=== PATIENT | female | born 1980 | race Caucasian/White ===

== ENCOUNTER 2016-07-11 16:56 | Emergency (ER) | payer SELFPAY ==
[2016-07-11 17:20] VITALS: BP 153/89
--- NOTE | 2016-07-11 18:10 | UC ---
Hand/Wrist HPI - HPI Summary HPI Summary: complaint of right pointer finger pain slammed in a car door yesterday finger is swollen and painful unable to sleep d/t pain pain increases with movement constant aching pain that is non radiating hasn't taken anything for pain d/t - History Of Current Complaint Chief Complaint: UCUpperExtremity Stated Complaint: FINGER INJURY Time Seen by Provider: 07/11/16 18:00 Hx Obtained From: Patient Hx Last Menstrual Period: over one year ago - Allergies/Home Medications Allergies/Adverse Reactions: Allergies Allergy/AdvReac Type Severity Reaction Status Date / Time No Known Allergies Allergy Verified 07/11/16 17:21 Home Medications: Home Medications NK [No Home Medications Reported] 07/11/16 [History Confirmed 07/11/16] PMH/Surg Hx/FS Hx/Imm Hx Previously Healthy: Yes Endocrine History Of: Reports: Diabetes - gestational, Thyroid Disease - nodule Cardiovascular History Of: Reports: Cardiac Disorders - mitral valve prolapse, Hypertension Denies: Congestive Heart Failure Respiratory History Of: Denies: COPD, Asthma GI/ History Of: Denies: Ulcer, Renal Disease Neurological History Of: Reports: Migraine - 20 year history, last migrane two months ago - Surgical History Surgical History: Yes Surgery Procedure, Year, and Place: c section two 01/31/16 - Family History Known Family History: Negative: Cardiac Disease, Hypertension, Diabetes - Social History Lives: With Family Alcohol Use: None Substance Use Type: None Smoking Status (MU): Never Smoked Tobacco Have You Smoked in the Last Year: No - Immunization History Most Recent Influenza Vaccination: unknown Most Recent Tetanus Shot: 12/06/15 Most Recent Pneumonia Vaccination: n/a Review of Systems Constitutional: Negative Skin: Negative Eyes: Negative ENT: Negative Respiratory: Negative Cardiovascular: Negative Gastrointestinal: Negative Genitourinary: Negative Motor: Negative, Decreased ROM Musculoskeletal: Other: - right pointer finger pain Neurological: Negative Psychological: Negative All Other Systems Reviewed And Are Negative: Yes Physical Exam Triage Information Reviewed: Yes Appearance: No Pain Distress, Well-Nourished Vital Signs: Initial Vital Signs Temp 98.6 F 07/11/16 17:17 Pulse 86 07/11/16 17:17 Resp 12 07/11/16 17:17 BP 153/89 07/11/16 17:17 Pulse Ox 100 07/11/16 17:17 Vital Signs Reviewed: Yes Eyes: Positive: Conjunctiva Clear ENT: Positive: Pharynx normal, TMs normal Neck: Positive: No Lymphadenopathy Respiratory: Positive: Lungs clear, Normal breath sounds, No respiratory distress Cardiovascular: Positive: RRR, No Murmur, Pulses Normal Musculoskeletal: Positive: Other: - righ index finger- edema and erythema throughout DIP and middle phalanx unable to bend DIP joint metacarpls in hand non tender Neurological: Positive: Alert Psychological Exam: Normal Skin Exam: Normal Skin: Positive: Other - nailbed of right index finger with collection of blood beneath Procedures - Procedure Summary Procedure Summary: finger cleansed with betadyne 18 guage needle turned on nail to release blood sterile dressing applied Hand/Wrist Course/Dx - Differential Dx/Diagnosis Differential Diagnosis/HQI/PQRI: Fracture, Sprain, Strain, Subungual Hematoma Provider Diagnoses: subnungal hematoma, right index finger distal tuft fracture Discharge - Discharge Plan Condition: Stable Disposition: HOME Patient Education Materials: Subungual Hematoma (ED), Finger Fracture (ED) Referrals: Glenda Thacker MD [Primary Care Provider] - Emily Soto MD [Medical Doctor] - Additional Instructions: Your blood pressure is elevated. Please contact your primary care provider for further evaluation. keep your finger in splint until you see orthopedics keep finger clean and dry Take acetaminophen or ibuprofen for fever or pain Please review your discharge instructions. If your symptoms do not improve please call your primary care provider or return to urgent care
--- NOTE | 2016-07-11 18:41 | RAD ---
Indication: Finger injury. 3 views of the right index finger demonstrates question of a nondisplaced fracture of the distal tuft of the distal phalanx. Proximal and distal interphalangeal joint is unremarkable. IMPRESSION: Question nondisplaced fracture of the distal tuft of the distal phalanx. No significant displacement is noted.
== END 2016-07-11 18:37 | disposition home or self-care (01) ==
LOC: UCEAST 16:56
DX: S60.021A Contusion of right index finger without damage to nail, initial encounter (principal); W23.0XXA Caught, crushed, jammed, or pinched between moving objects, initial encounter; Y93.9 Activity, unspecified; Y92.810 Car as the place of occurrence of the external cause
CPT/HCPCS: 10160; 73140; 99211; G0463

== ENCOUNTER 2017-11-03 18:23 | Emergency (ER) | payer BC ==
[2017-11-03] MEDS ORDERED: Ketorolac INJ* 30 MG/ML 1 ML VIAL IV PUSH ONE (19:15)
[2017-11-03] MEDS ORDERED: diPHENhydraMINE IV* 50 MG/ML 1 ml VIAL (BENADRYL) IV ONE (19:15)
[2017-11-03] MEDS ORDERED: Metoclopramide IV* 5 MG/ML 2 ML VIAL IV ONE (19:15)
[2017-11-03] MEDS ORDERED: NS 0.9% 1000 ML* 1,000 ML IV ONE (19:15)
--- NOTE | 2017-11-03 19:47 | ED ---
Headache - HPI Summary HPI Summary: A 37 y/o female presents to ED c/o severe migraine headache. According to the patient, the right-sided headache has been getting worse since the morning reaching 10/10 in severity. Additionally, she has neck pain, light sensitivity and her tongue feels numb. She stated that this is the 3rd migraine attack today , however she was able subside the pain with her prescribed medication for migraines from neurologist, Dr. To. The medication did not quite stop the pain , but reduced it. It never fully went away. Pt denies any vomit or nausea. Pt is soft-spoken. LKMP was 1 week ago, no possibility for . - History Of Current Complaint Chief Complaint: EDHeadache Stated Complaint: MIGRAINE Time Seen by Provider: 11/03/17 18:55 Hx Obtained From: Patient Hx Last Menstrual Period: over one year ago Onset/Duration: Sudden Onset, Started hours ago, Still Present Initially Headache Was: "Worst Headache Ever" - 10/10 Currently Pain Is: Severe - 10/10 Timing: Constant Location of Headache: Other: - Right-sided Allevating Factors: Medication - Prescribed meds, temporarily Associated Signs And Symptoms: Neck Pain, Other (Noted In Comments) - Tongue feels numb - Allergies/Home Medications Allergies/Adverse Reactions: Allergies Allergy/AdvReac Type Severity Reaction Status Date / Time No Known Allergies Allergy Verified 11/03/17 18:28 PMH/Surg Hx/FS Hx/Imm Hx Endocrine/Hematology History: Reports: Hx Diabetes - gestational, Hx Thyroid Disease - nodule Cardiovascular History: Reports: Hx Hypertension, Other Cardiovascular Problems/ Disorders - "prolapsed heart valve" Denies: Hx Congestive Heart Failure Respiratory History: Denies: Hx Asthma, Hx Chronic Obstructive Pulmonary Disease (COPD), Other Respiratory Problems/Disorders - DENIES GI History: Denies: Hx Ulcer History: Reports: Other Problems/Disorders - two weeks ago, still has vaginal bleeding Denies: Hx Renal Disease Musculoskeletal History: Reports: Hx Back Problems - fell on ice two years ago, painful if she has too much activity Neurological History: Reports: Hx Migraine - 20 year history, last migrane two months ago - Surgical History Surgery Procedure, Year, and Place: c section two 01/31/16 Hx Anesthesia Reactions: No Infectious Disease History: No Infectious Disease History: Denies: Hx Hepatitis, Hx Human Immunodeficiency Virus (HIV), Traveled Outside the [place] in Last 30 Days - Family History Known Family History: Negative: Cardiac Disease, Hypertension, Diabetes - Social History Alcohol Use: None Substance Use Type: Reports: None Smoking Status (MU): Never Smoked Tobacco Have You Smoked in the Last Year: No Review of Systems Negative: Fever Positive: Photophobia Positive: Other - POSITIVE: Tongue feels numb Positive: Other - POSITIVE: Neck pain. Negative: Vomiting, Nausea Positive: Headache - Migraine 01/29 All Other Systems Reviewed And Are Negative: Yes Physical Exam - Summary Physical Exam Summary: GENERAL: Patient is a well developed and nourished female who is lying uncomfortable in the stretcher secondary to pain. Patient is not in any acute respiratory distress. HEAD AND FACE: Normocephalic EYES: PERRLA, EOMI x 2. EARS: Hearing grossly intact. MOUTH: Oropharynx within normal limits. NECK: Supple, trachea is midline, no adenopathy, no JVD, no carotid bruit. CHEST: Symmetric, no tenderness at palpation LUNGS: Clear to auscultation bilaterally. No wheezing or crackles. CVS: Regular rate and rhythm, S1 and S2 present, no murmurs or gallops appreciated. ABDOMEN: Soft, non-tender. Bowel sounds are normal. No abdominal abnormal pulsations. EXTREMITIES: Full ROM in all major joints, no edema, no cyanosis or clubbing. NEURO: Alert and oriented x 3. No acute neurological deficits. Speech is normal and follows commands. SKIN: Dry and warm Triage Information Reviewed: Yes Vital Signs On Initial Exam: Initial Vitals Temp Pulse Resp BP Pulse Ox 98.0 F 86 14 145/79 100 11/03/17 18:26 11/03/17 18:26 11/03/17 18:26 11/03/17 18:26 11/03/17 18:26 Vital Signs Reviewed: Yes Diagnostics - Vital Signs Vital Signs Temp Pulse Resp BP Pulse Ox 11/03/17 18:26 98.0 F 86 14 145/79 100 - Laboratory Lab Statement: Any lab studies that have been ordered have been reviewed, and results considered in the medical decision making process. - CT No standard instances CT Interpretation: No Acute Changes CT Interpretation Completed By: ED Physician, Radiologist Re-Evaluation - Re-Evaluation First Eval Re-Evaluation Time: 21:08 Change: Unchanged Comment: Patient is still in pain. She is sore up and down. No possibility for pregnany. No test will be required. Will get CAT scan of head. Headache Course/Dx - Course Course Of Treatment: A 37 y/o female presents to ED c/o severe migraine headache. According to the patient, the right-sided headache has been getting worse since the morning reaching 10/10 in severity. Additionally, she has neck pain, light sensitivity and her tongue feels numb. In the ED course, the patient received Decadron, Benadryl, Toradol, Reglan, Magnesium Sulfate and IV fluids. Patient care was discussed with Dr. Florian. During reevaluation of patient, it was found that she still in pain. She is sore up and down. No possibility for pregnany. No test will be ordered. Will get CAT scan of head. Patient will be signed out to [place]. Currently awaiting Brain CT. - Diagnoses Provider Diagnoses: Migraine - Physician Notifications Discussed Care Of Patient With: Hailey Florian Discharge - Sign-Out/Discharge Documenting (check all that apply): Patient Departure - Discharge Plan Condition: Improved Disposition: HOME Prescriptions: diPHENhydraMINE PO* [Benadryl PO 25 MG TAB*] 25 mg PO Q6H PRN #24 tab PRN Reason: Headache Metoclopramide TAB* [Reglan TAB*] 10 mg PO Q8H PRN #14 tab PRN Reason: Headache Patient Education Materials: Migraine Headache (ED) Referrals: Glenda Thacker MD [Primary Care Provider] - - Billing Disposition and Condition Condition: IMPROVED Disposition: Home
[2017-11-03] MEDS ORDERED: Dexamethasone IV* 4 MG/ML 5 ML VIAL (20 MG) IVPB ONE (20:35)
[2017-11-03] MEDS ORDERED: Magnesium Sulfate IV* 2 GM in NS 0.9% 100 ML* 100 ML IV ONE (20:36)
[2017-11-03] MEDS ORDERED: Magnesium Sulfate IV* 0.5 GM/ML 2 ML VIAL (1 GM) ONE (20:39)
[2017-11-03] MEDS ORDERED: Dexamethasone IV* 4 MG/ML 5 ML VIAL (20 MG) ONE (20:40)
[2017-11-03] MEDS ORDERED: diPHENhydraMINE PO* 25 MG PO ONE (22:01)
[2017-11-03] MEDS ORDERED: Metoclopramide TAB* 10 MG PO ONE (22:01)
[2017-11-03 23:09] VITALS: BP 121/79
--- NOTE | 2017-11-04 07:31 | RAD ---
Indication: Migraine headache. CT of the brain was performed without IV contrast. Ventricular structures are midline. No midline shift is noted. The extra-axial spaces are unremarkable. There is no evidence of intracranial mass or hemorrhage. No other high or low density lesions are identified. Mastoid air cells and paranasal sinuses are otherwise unremarkable. IMPRESSION: No intracranial mass or hemorrhage is noted.
== END 2017-11-03 23:08 | disposition home or self-care (01) ==
LOC: ED 18:23
DX: G43.909 Migraine, unspecified, not intractable, without status migrainosus (principal); M54.2 Cervicalgia; R20.2 Paresthesia of skin; Z86.32 Personal history of gestational diabetes; E04.1 Nontoxic single thyroid nodule; I11.9 Hypertensive heart disease without heart failure
CPT/HCPCS: 70450; 96365; 96375; 96376; 99282; A9270-GY; J1100; J1200; J1885; J2765; J3475

== ENCOUNTER 2019-04-03 09:24 | Emergency (ER) | payer BC ==
--- OUTSIDE RECORDS SUMMARY | 2019-04-03 09:35 | XMS REPORT | Continuity of Care Document ---
:1980 External Reference #:[id number] Author Name Spencer To M.D. (transmitted by agent of provider Anai Ling) Address [address] [place] [address], [place] [address] Care Team Providers Name Role Phone Yasmin Hubbard NP - Family Care Team Information [facility] [employer] [phone] Glenda Thacker MD - Internal Care Team Information [facility] Medicine Pancho Crawford MD - Otolaryngology Care Team Information [employer] [employer] [phone] Problems Active Problems Provider Date Non-toxic uninodular goiter Liberty Maya M.D., [facility] Onset: 11/06/2010 Migraine without aura, not refractory Cleo Ritter M.D. Onset: 2014 Migraine with aura Cleo Ritter M.D. Onset: 09/02/2014 Dyspnea Mohini Montero MD Onset: 11/03/2014 Mitral valve disorder Mohini Montero MD Onset: 01/19/2015 Note: mitral regurg Palpitations Santiago Bishop M.D., [facility], [facility] Onset: 09/05/2015 Crushing injury of finger Juan C Gutierrez MD Onset: 07/13/2016 Refractory migraine with aura Spencer To M.D. Onset: 09/09/2017 Hypersomnia Spencer To M.D. Onset: 03/27/2019 Pulmonary hypertension Spencer To M.D. Onset: 03/27/2019 Social History Type Date Description Comments Sex Unknown ETOH Use Denies alcohol use Tobacco Use Start: Unknown Patient has never smoked Recreational Drug Use Denies Drug Use Smoking Status Reviewed: 03/27/19 Patient has never smoked Exercise Type/Frequency Does not exercise Allergies, Adverse Reactions, Alerts Description No Known Drug Allergies Medications Active Medications SIG Qnty Indications Ordering Provider Date Medrol take as directed 21tabs Qamar Omalley, 03/05/2019 4mg per dosepak N.P. Tablets instructions Aimovig inject with one 140 1ml Qamar Omalley, 02/12/2019 140mg/ml mg auto-inject pen, N.P. Solution subcutaneous Auto-Inject injection once a month Rizatriptan 1 by mouth as 9tabs Spencer To, 02/12/2019 Benzoate needed for headache M.D. 10mg may repeat once in Tablets Dispers 2 hours max 2 days a week Ondansetron HCL take 1 pill every 8 14tabs Spencer To, 03/11/2018 hours as needed for M.D. 4mg Tablets nausea Butalbital/Acetami 1 by mouth every 15caps G43.119 Spencer To, 11/18 nophen/Caffeine 8-12 hours as M.D. needed for 50-325-40mg headache. do not Capsules drive after taking Parks take 1/2 to 1 pill 9tabs Spencer To, 11/03/2017 10-325mg by mouth every 8-12 M.D. Tablets hours as needed for pain. can cause sleepiness, do not drive while taking Aleve one to two tabs as Unknown Capsules needed Vitamin B-2 1 tab by mouth once Unknown 100mg a day Tablets Immunizations CPT Code Status Date Vaccine Lot # [id number] Given 01/26/2019 Influenza Virus Vaccine, Quadrivalent, Split, Preservative Free 09939 Given 01/28/2018 Influenza Virus Vaccine, Quadrivalent, Split, Preservative Free 92386 Given 01/28/2018 Influenza Virus Vaccine, Quadrivalent, Split, Preservative Free 39890 Given 02/12/2017 Influenza Virus Vaccine, Quadrivalent, Split, [id number] Preservative Free 67231 Given 03/15/2015 Influenza Virus Vaccine, Quadrivalent, Split, [id number] Preservative Free 03450 Given 02/12/2012 Tdap - Tetanus/Diptheria/Acellular Pertussis [id number] Given 01/02/2012 Fluzone Vaccine [id number] 26603 Given 01/15/2011 Influenza Virus 3Yrs & Over [id number] 31715 Given 02/13/2007 Influenza Virus 3Yrs & Over Vital Signs Date Vital Result Comment 03/27/2019 9:27am Height 67 inches 5'7" Weight 200.00 lb Heart Rate 84 /min BP Systolic Sitting 138 mmHg BP Diastolic Sitting 84 mmHg BMI (Body Mass Index) 31.3 kg/m2 02/20/2019 9:19am Height 67 inches 5'7" Weight 202.00 lb Heart Rate 83 /min BP Systolic 137 mmHg BP Diastolic 85 mmHg O2 % BldC Oximetry 98 % BMI (Body Mass Index) 31.6 kg/m2 Results Test Acquired Date Facility Test Result H/L Range Note Order 03/26/2019 [facility] Echocardiogram <pending > [address] [place] [address] [phone] Cytology 03/05/2019 [facility] Cytology SEE RESULT 1, [address] [place] [address] [phone] PDFReport SEE IMAGE Lipid Profile 02/12/2019 [facility] Triglycerides 123 mg/dL 3 (Trig/Chol/HDL) [address] [place] [address] [phone] Cholesterol 133 mg/dL 4 HDL Cholesterol 41.3 mg/dL 5 LDL Cholesterol 67 mg/dL 6 Laboratory 02/12/2019 [facility] TSH (Thyroid 2.06 Normal 0.34 -5.60 test finding [address] Stim Horm) mcIU/[place] [address] [phone] CBC No Diff 02/12/2019 [facility] White Blood 6.4 10^3/uL Normal 3.5-10.[address] [place] [address] [phone] Red Blood Count 4.50 10^6/uL Normal 3.70-4.87 Hemoglobin 13.4 g/dL Normal 12.0-16.0 Hematocrit 40 % Normal 35-47 Mean Corpuscular Volume 89 fL Normal 80-97 Mean Corpuscular Hemoglobin 30 pg Normal 27-31 Mean Corpuscular HGB Conc 34 g/dL Normal 31-36 Red Cell Distribution Width 14 % Normal 10-15 Platelet Count 217 10^3/uL Normal 150-450 Mean Platelet Volume 8.5 fL Normal 7.4-10.4 Comp Metabolic 02/12/2019 [facility] Sodium 139 mmol/L Normal 135-[address] [place] [address] [phone] Potassium 4.3 mmol/L Normal 3.5-5.0 Chloride 105 mmol/L Normal 101-111 Co2 Carbon Dioxide 28 mmol/L Normal 22-32 Anion Gap 6 mmol/L Normal 2-11 Glucose 91 mg/dL Normal 70-100 Blood Urea Nitrogen 16 mg/dL Normal 6-24 Creatinine 0.75 mg/dL Normal 0.51-0.95 BUN/Creatinine Ratio 21.3 High 8-20 Calcium 9.3 mg/dL Normal 8.6-10.3 Total Protein 6.9 g/dL Normal 6.4-8.9 Albumin 4.4 g/dL Normal 3.2-5.2 Globulin 2.5 g/dL Normal 2-4 Albumin/Globulin Ratio 1.8 Normal 1-3 Total Bilirubin 1.10 mg/dL High 0.2-1.0 Alkaline Phosphatase 52 U/L Normal 34-104 Alt 15 U/L Normal 7-52 Ast 15 U/L Normal 13-39 Egfr Non- 86.5 >60 Egfr 104.6 >60 7 1 [id number] 2 SEE RESULT BELOW Name: ZHANEKAMARIAlla ALICIA Rosibel : [address]: Quyen Montgomery MD Acct: [id number] Unit: [id number] AGE: 38 Location: [facility] Re03/05/19 SEX: F Status: REG REF SPEC: [id number] ARMEN: 03/05/19-0936 [facility] DR: Quyen Montgomery MD REQ: [id number] RECD: 03/05/19-1256 STATUS: AISLINN FUNEZ DR: Glenda Thacker MD _ ORDERED: TP IMAGE ANALYS, HPV/Thin Prep COMMENTS: [id number] FINAL DIAGNOSIS Negative for Intraepithelial lesion or Malignancy HPV RESULTS Date Time Test Result Flag (u) Normal Range 03/05/19 0936 HPV TAMIKO Negative Negative The high-risk HPV types detected by the assay include: 16, 18, 31, 33, 35, 39, 45, 51, 52, 56, 58, 59, 66, and 68. SPECIMEN(S) RECEIVED A. Ectocervical/Endocervical CYTOLOGY ADEQUACY Specimen Adequacy: Satisfactory of evaluation Transformation zone component identified CONTINUED ON NEXT PAGE DEPARTMENT OF PATHOLOGY, [address] [place] [address] Anupam Cardenas M.D. Director [facility] # [id number] CYTOLOGY PATIENT INFORMATION Patient Information: HPV: High risk HPV RNA testing regardless of pap results. Actual Specimen Date: 03/05/19 Last Menstrual Date: 02/13/19 Date of Last Specimen: 07/27/15 Signed by and Reported on: AVINASH Rowland (ASCP) [id number] This Pap test was evaluated with the assistance of the ThinPrep Test Imaging System. Due to cytologic findings at the tray line supervisor microscope, comprehensive manual rescreening by a Professional Skater may be required. The Pap Smear is a screening test designed to aid in the detection of premalignant and malignant conditions of the uterine cervix. It is not a diagnostic procedure and should not be used as the sole means of detecting cervical cancer. Both false- positive and false- negative reports do occur. Depending on your risk status, a Pap smear should be obtained and evaluated every 1-3 years. END OF REPORT DEPARTMENT OF PATHOLOGY, [address] [place] [address] Anupam Cardenas M.D. Director [facility] # [id number] 3 Desirable: <150 Borderline High: 150-199 High: 200-499 Very High: >500 4 Desirable: <200 Borderline High: 200-239 High: >239 5 Low: <40 Desirable: 40-60 High: >60 6 Desirable: <100 Near Optimal: 100-129 Borderline High: 130-159 High: 160-189 Very High: >189 7 Because ethnic data is not always readily available, this report includes an eGFR for both -Americans and non- Americans. The National Kidney Disease Education Program (NKDEP) does not endorse the use of the MDRD equation for patients that are not between the ages of 18 and 70, are , have extremes of body size, muscle mass, or nutritional status, or are non- or non-. According to the National Kidney Foundation, irrespective of diagnosis, the stage of the disease is based on the level of kidney function: Stage Description GFR(mL/min/1.73 m(2)) 1 Kidney damage with normal or decreased GFR 90 2 Kidney damage with mild decrease in GFR 60-89 3 Moderate decrease in GFR 30-59 4 Severe decrease in GFR 15-29 5 Kidney failure <15 (or dialysis) Procedures Date Code Description Status 03/26/2019 48715 ECHO Transthoracic, Real-Time 2D With Doppler And Color Completed Flow 03/03/2010 [id number] Mammogram Completed 06/11/2008 [id number] Mammogram Completed Medical Devices Description No Information Available Encounters Type Date Location Provider Dx Diagnosis Office Visit 02/20/2019 [facility] Glenda Thacker, Z00.00 Encntr for 9:20a Medicine - [facility] general adult medical exam w/o abnormal findings I27.20 Pulmonary hypertension, unspecified E04.9 Nontoxic goiter, unspecified F41.9 Anxiety disorder, unspecified G47.33 Obstructive sleep apnea (adult) (pediatric) Office 02/02/2019 [facility] G43.119 Migraine with Visit 11:45a [facility] To M.D. aura, intractable, without status migrainosus Office 10/31/2018 [facility] Qamar G43.119 Migraine with Visit 9:30a [facility], N.PMariola aura, intractable, without status migrainosus Assessments Date Code Description Provider 03/27/2019 G43.119 Migraine with aura, intractable, without Spencer To M.D. status migrainosus 03/27/2019 I27.20 Pulmonary hypertension, unspecified Spencer To M.D. 03/27/2019 G47.14 Hypersomnia due to medical condition Spencer To M.D. 03/26/2019 I27.20 Pulmonary hypertension, unspecified Traveling ECHO 2 02/20/2019 Z00.00 Encounter for general adult medical Glenda Thacker M.D. examination without abnormal findings 02/20/2019 I27.20 Pulmonary hypertension, unspecified Glenda Thacker M.D. 02/20/2019 E04.9 Nontoxic goiter, unspecified Glenda Thacker M.D. 02/20/2019 F41.9 Anxiety disorder, unspecified Glenda Thacker M.D. 02/20/2019 G47.33 Obstructive sleep apnea (adult) (pediatric) Glenda Thacker M.D. 02/02/2019 G43.119 Migraine with aura, intractable, without Spencer To M.D. status migrainosus 10/31/2018 G43.119 Migraine with aura, intractable, without Qamaralesha Omalley , N.P. status migrainosus Plan of Treatment Future Appointment(s):06/11/2019 9:15 am - Spencer To M.D. at [facility]03/27/2019 - Spencer To M.D.G43.119 Migraine with aura, intractable, without status migrainosusFollow up:I will call you with new options Keep appointment in May CPAPI27.20 Pulmonary hypertension, [id number] Hypersomnia due to medical condition Functional Status Description No Information Available Mental Status Description No Information Available Referrals Description No Information Available
--- OUTSIDE RECORDS SUMMARY | 2019-04-03 09:35 | XMS REPORT | Continuity of Care Document ---
:1980 External Reference #:[id number] Author Name Emily Almonte NP (transmitted by agent of provider Zuly Headley) Address [address], [address] [place] [address] Care Team Providers Name Role Phone Yasmin Hubbard NP - Family Care Team Information Valve Machine Operator [phone] Glenda Thacker MD - Internal Care Team Information Valve Machine Operator [phone] Medicine Pancho Crawford MD - Otolaryngology Care Team Information Valve Machine Operator Problems Active Problems Provider Date Non-toxic uninodular goiter Liberty Maya M.D., [facility] Onset: 11/06/2010 Migraine without aura, not refractory Cleo Ritter M.D. Onset: 2014 Migraine with aura Cleo Ritter M.D. Onset: 09/02/2014 Dyspnea Mohini Montero MD Onset: 11/03/2014 Mitral valve disorder Mohini Montero MD Onset: 01/19/2015 Note: mitral regurg Palpitations Santiago Bishop M.D., [facility], Onset: 09/05/2015 FASNC Crushing injury of finger Juan C Gutierrez MD Onset: 07/13/2016 Refractory migraine with aura Spencer To M.D. Onset: 09/09/2017 Pulmonary hypertension Spencer To M.D. Onset: 03/27/2019 Hypersomnia Spencer To M.D. Onset: 03/27/2019 Obstructive sleep apnea syndrome Glenda Thacker M.D. Onset: 03/27/2019 Note: Mild sleep apnea 7.5 NPSG Split night Social History Type Date Description Comments Sex [...] headache. do not Capsules drive after taking [place] take 1/2 to 1 pill 9tabs Spencer To, 11/03/2017 10-325mg by mouth every 8-12 M.D. Tablets hours as needed for pain. can cause sleepiness, do not drive while taking Aleve one to two tabs as Unknown Capsules needed Vitamin B-2 1 tab by mouth once Unknown 100mg a day Tablets Immunizations CPT Code Status Date Vaccine Lot # [id number] Given 01/26/2019 Influenza Virus Vaccine, Quadrivalent, Split, Preservative Free 64591 Given 01/28/2018 Influenza Virus Vaccine, Quadrivalent, Split, Preservative Free 78718 Given 01/28/2018 Influenza Virus Vaccine, Quadrivalent, Split, Preservative Free 46028 Given 02/12/2017 Influenza Virus Vaccine, Quadrivalent, Split, [id number] Preservative Free 89638 Given 03/15/2015 Influenza Virus Vaccine, Quadrivalent, Split, [id number] Preservative Free 70779 Given 02/12/2012 Tdap - Tetanus/Diptheria/Acellular Pertussis [id number] Given 01/02/2012 Fluzone Vaccine [id number] 63704 Given 01/15/2011 Influenza Virus 3Yrs & Over [id number] 71466 Given 02/13/2007 Influenza Virus 3Yrs & Over [...] Test Result H/L Range Note Order 03/26/2019 [facility] Echocardiogram <pending > [address] [place] [address] [phone] Cytology 03/05/2019 [facility] Cytology SEE RESULT 1, [address] [place] [address] [phone] PDFReport SEE IMAGE Lipid Profile 02/12/2019 [facility] Triglycerides 123 mg/dL 3 (Trig/Chol/HDL) [address] [place] [address] [phone] Cholesterol 133 mg/dL 4 HDL Cholesterol 41.3 mg/dL 5 LDL Cholesterol 67 mg/dL 6 Laboratory 02/12/2019 [facility] TSH (Thyroid 2.06 Normal 0.34 -5.[address] Stim Horm) mcIU/[place] [address] [phone] CBC No Diff 02/12/2019 [facility] White Blood 6.4 10^3/uL Normal 3.5-10.[address] [place] [address] [phone] Red Blood Count 4.50 10^6/uL Normal 3.70-4.87 Hemoglobin 13.4 g/dL Normal 12.0-16.0 Hematocrit 40 % Normal 35-47 Mean Corpuscular Volume 89 fL Normal 80-97 Mean Corpuscular Hemoglobin 30 pg Normal 27-31 Mean Corpuscular HGB Conc 34 g/dL Normal 31-36 Red Cell Distribution Width 14 % Normal 10-15 Platelet Count 217 10^3/uL Normal 150-450 Mean Platelet Volume 8.5 fL Normal 7.4-10.4 Comp Metabolic 02/12/2019 [facility] Sodium 139 mmol/L Normal 135-[address] [place] [address] [phone] Potassium 4.3 mmol/L Normal 3.5-5.0 Chloride 105 [...] 86.5 >60 Egfr 104.6 >60 7 1 [id number] 2 SEE RESULT BELOW Name: Alla BUTLER : [address]: Quyen Montgomery MD Acct: [id number] Unit: [id number] AGE: 38 Location: [facility] Re03/05/19 SEX: F Status: REG REF SPEC: [id number] ARMEN: 03/05/19-[address] [facility] [address]: Quyen Montgomery MD REQ: [id number] RECD: 03/05/19-1257 STATUS: AISLINN FUNEZ DR: Glenda Thacker MD _ ORDERED: TP IMAGE ANALYS, HPV/Thin Prep COMMENTS: [id number] FINAL DIAGNOSIS Negative for Intraepithelial lesion or [...] CONTINUED ON NEXT PAGE DEPARTMENT OF PATHOLOGY, [address] [place] [address] Anupam Cardenas M.D. Director [facility] # [id number] CYTOLOGY PATIENT INFORMATION Patient Information: HPV: High risk HPV RNA testing regardless of pap results. Actual Specimen Date: 03/05/19 Last Menstrual Date: 02/13/19 Date of Last Specimen: 07/27/15 Signed by and Reported on: AVINASH Rowland (ASCP) 150 This Pap test was evaluated with the assistance of the NetradaPrep Test Imaging System. Due to cytologic findings at the aluminum molder microscope, comprehensive manual rescreening by a Transportation Technician may be required. The Pap Smear is [...] years. END OF REPORT DEPARTMENT OF PATHOLOGY, [address] [place] [address] Anupam Cardenas M.D. Director [facility] # [id number] 3 Desirable: <150 Borderline High: 150-199 High: [...] dialysis) Procedures Date Code Description Status 03/26/2019 47824 ECHO Transthoracic, Real-Time 2D With Doppler And Color Completed Flow 03/03/2010 [id number] Mammogram Completed 06/11/2008 [id number] Mammogram Completed Medical Devices Description No Information Available Encounters Type Date Location Provider Dx Diagnosis Office Visit 02/20/2019 [facility] Glenda Thacker, Z00.00 Encntr for 9:20a Medicine - Gerald Oakley general adult medical exam w/o abnormal findings I27.20 Pulmonary hypertension, unspecified E04.9 Nontoxic goiter, unspecified F41.9 Anxiety disorder, unspecified G47.33 Obstructive sleep apnea (adult) (pediatric) Office 02/02/2019 [facility] Spencer G43.119 Migraine with Visit 11:45a [facility] M.D. aura, intractable, without status migrainosus Office 10/31/2018 [facility] Qamar G43.119 Migraine with Visit 9:30a Clinic Nolvia Omalley aura, intractable, without status migrainosus Assessments Date Code Description Provider 03/27/2019 G47.33 Obstructive sleep apnea (adult) (pediatric) Emily Almonte NP 03/27/2019 G43.119 Migraine with aura, intractable, without Spencer To M.D. status migrainosus 03/27/2019 R06.02 Shortness of breath Emily Almonte NP 03/27/2019 I27.20 Pulmonary hypertension, unspecified Spencer To M.D. 03/27/2019 I27.20 Pulmonary hypertension, unspecified Emily Almonte NP 03/27/2019 G47.14 Hypersomnia due to medical condition Spencer To M.D. 03/27/2019 G47.14 Hypersomnia due to medical condition Eimly Almonte NP 03/26/2019 I27.20 Pulmonary hypertension, unspecified Traveling ECHO [...] 10/31/2018 G43.119 Migraine with aura, intractable, without Qamar Omalley N.P. status migrainosus Plan of Treatment Future Appointment(s):06/11/2019 9:15 am - Spencer To M.D. at [facility]03/27/2019 - Emily Almonte NPG47.33 Obstructive sleep apnea (adult) (pediatric)New Orders:Sleep-Homecare, Ordered: Follow up:6 weeksRecommendations:Please call and let us know which homecare company you would like to go to for your CPAP so we can send over the information. If your insurance requires a new sleep study we will let you know. If you have any further questions, please call the [facility] at [phone] If you have any sleepiness while driving you MUST avoid operating a vehicle or machinery. If you feel tired while driving pulling machine operator and take a nap or switch drivers. If you know you are sleepy and need to go somewhere,arrange for a ride or use public transportation. It is very important to not risk your safety or thesafety of others.R06.02 Shortness of yrtigoE75.20 Pulmonary hypertension, bhneertvfunS17.14 Hypersomnia due to medical condition Functional Status Description No Information Available Mental Status Description No Information Available Referrals Description No Information Available
--- OUTSIDE RECORDS SUMMARY | 2019-04-03 09:35 | XMS REPORT | Continuity of Care Document ---
:1980 External Reference #:[id number] Author Name Glenda Thacker M.D. (transmitted by agent of provider Nahomy Armstrong ) Address [address], [place] [address] Care Team Providers Name Role Phone Yasmin Hubbard NP - Family Care Team Information Sas Programmer Analyst [phone] Glenda Thacker MD - Internal Care Team Information Sas Programmer Analyst Pancho Hunt MD - Otolaryngology Care Team Information Sas Programmer Analyst [phone] Problems Active Problems Provider Date Non-toxic uninodular goiter Liberty Maya M.D., [facility] Onset: 11/06/2010 Migraine without aura, not refractory Cleo Ritter M.D. Onset: 2014 Migraine with aura Cleo Ritter M.D. Onset: 09/02/2014 Dyspnea Mohini Montero MD Onset: 11/03/2014 Mitral valve disorder Mohini Montero MD Onset: 01/19/2015 Note: mitral regurg Palpitations Santiago Bishop M.D., [facility], FASNC Onset: 09/05/2015 Crushing injury of finger Juan C Gutierrez MD Onset: 07/13/2016 Refractory migraine with aura Spencer To M.D. Onset: 09/09/2017 Social History Type Date Description Comments Sex Unknown ETOH Use Denies alcohol use Tobacco Use Start: Unknown Patient has never smoked Recreational Drug Use Denies Drug Use Smoking Status Reviewed: 02/20/19 Patient has never smoked Exercise Type/Frequency Does not exercise Allergies, Adverse Reactions, Alerts Description No Known Drug Allergies Medications Active Medications SIG Qnty Indications Ordering Provider Date Aimovig inject with one 140 1ml Qamar Omalley, 02/12/2019 140mg/ml mg auto-inject pen, N.P. Solution subcutaneous Auto-Inject injection once a month Rizatriptan 1 by mouth as 9tabs Qamar Omalley, 02/12/2019 Benzoate needed for headache N.P. 10mg may repeat once in Tablets Dispers 2 hours max 2 days a week Ondansetron HCL take 1 pill every 8 14tabs Spencer To, 03/11/2018 hours as needed for M.D. 4mg Tablets nausea Butalbital/Acetami 1 by mouth every 15caps G43.119 Spencer To, 11/18 nophen/Caffeine 8-12 hours as M.D. needed for 50-325-40mg headache. Do not Capsules drive after taking [place] Take 1/2 to 1 pill 9tabs Spencer To, 11/03/2017 10-325mg by mouth every 8-12 M.D. Tablets hours as needed for pain. Can cause sleepiness, do not drive while taking Aleve one to two tabs as Unknown Capsules needed Vitamin B-2 1 tab by mouth once Unknown 100mg a day Tablets Immunizations CPT Code Status Date Vaccine Lot # [id number] Given 01/26/2019 Influenza Virus Vaccine, Quadrivalent, Split, Preservative Free [id number] Given 01/28/2018 Influenza Virus Vaccine, Quadrivalent, Split, Preservative Free 53259 Given 01/28/2018 Influenza Virus Vaccine, Quadrivalent, Split, Preservative Free 02756 Given 02/12/2017 Influenza Virus Vaccine, Quadrivalent, Split, [id number] Preservative Free 62591 Given 03/15/2015 Influenza Virus Vaccine, Quadrivalent, Split, [id number] Preservative Free 27664 Given 02/12/2012 Tdap - Tetanus/Diptheria/Acellular Pertussis [id number] Q2038 Given 01/02/2012 Fluzone Vaccine [id number] 94867 Given 01/15/2011 Influenza Virus 3Yrs & Over [id number] 06217 Given 02/13/2007 Influenza Virus 3Yrs & Over Vital Signs Date Vital Result Comment 02/20/2019 9:19am Height 67 inches 5'7" Weight 202.00 lb Heart Rate 83 /min BP Systolic 137 mmHg BP Diastolic 85 mmHg O2 % BldC Oximetry 98 % BMI (Body Mass Index) 31.6 kg/m2 02/02/2019 11:46am Height 67 inches 5'7" Weight 194.00 lb Heart Rate 69 /min BP Systolic 138 mmHg BP Diastolic 82 mmHg BMI (Body Mass Index) 30.4 kg/m2 Results Test Acquired Date Facility Test Result H/L Range Note Lipid Profile 02/12/2019 [facility] Triglycerides 123 mg/dL 1 (Trig/Chol/HDL) [place] [address] [phone] Cholesterol 133 mg/dL 2 HDL Cholesterol 41.3 mg/dL 3 LDL Cholesterol 67 mg/dL 4 Laboratory 02/12/2019 [facility] TSH (Thyroid 2.06 Normal 0.34 -5.60 test finding Stim Horm) mcIU/[place] [address] [phone] CBC No Diff 02/12/2019 [facility] White Blood 6.4 10^3/uL Normal 3.5-10.8 [place] [address] [phone] Red Blood Count 4.50 10^6/uL Normal 3.70-4.87 Hemoglobin 13.4 g/dL Normal 12.0-16.0 Hematocrit 40 % Normal 35-47 Mean Corpuscular Volume 89 fL Normal 80-97 Mean Corpuscular Hemoglobin 30 pg Normal 27-31 Mean Corpuscular HGB Conc 34 g/dL Normal 31-36 Red Cell Distribution Width 14 % Normal 10-15 Platelet Count 217 10^3/uL Normal 150-450 Mean Platelet Volume 8.5 fL Normal 7.4-10.4 Comp Metabolic 02/12/2019 [facility] Sodium 139 mmol/L Normal 135-145 [place] [address] [phone] Potassium 4.3 mmol/L Normal 3.5-5.0 Chloride 105 [...] Egfr Non- 86.5 >60 Egfr 104.6 >60 5 1 Desirable: <150 Borderline High: 150-199 High: 200-499 Very High: >500 2 Desirable: <200 Borderline High: 200-239 High: >239 3 Low: <40 Desirable: 40-60 High: >60 4 Desirable: <100 Near Optimal: 100-129 Borderline High: 130-159 High: 160-189 Very High: >189 5 Because ethnic data is not always readily [...] (or dialysis) Procedures Date Code Description Status 09/19/2018 83461 ECHO Transthoracic, Real-Time 2D With Doppler And Color Completed Flow 09/19/2018 48917 ECHO Transthoracic, Real-Time 2D With Doppler And Color Completed Flow 03/03/2010 [id number] Mammogram Completed 06/11/2008 [id number] Mammogram Completed Medical Devices Description No Information Available Encounters Type Date Location Provider Dx Diagnosis Office Visit 02/02/2019 [facility] Spencer To, G43.119 Migraine with 11:45a [facility] Turbine Mechanical Engineer M.D. aura, intractable, without status migrainosus Office Visit 10/31/2018 [facility] Qamar Omalley, G43.119 Migraine with 9:30a Clinic N.P. aura, intractable, without status migrainosus Office Visit 09/09/2018 [facility] Glenda Thacker, E04.9 Nontoxic goiter, 8:40a - Ccmob Adin unspecified R13.10 Dysphagia, unspecified I27.20 Pulmonary hypertension, unspecified Assessments Date Code Description Provider 02/20/2019 Z00.00 Encounter for general adult Glenda Thacker M.D. medical examination without abnormal findings 02/20/2019 I27.20 Pulmonary hypertension, Glenda Thacker M.D. unspecified 02/20/2019 E04.9 Nontoxic goiter, unspecified Glenda Thacker M.D. 02/20/2019 F41.9 Anxiety disorder, unspecified Glenda Thacker M.D. 02/20/2019 G47.33 Obstructive sleep apnea (adult) Glenda Thacker M.D. (pediatric) 02/02/2019 G43.119 Migraine with aura, intractable, Spencer To M.D. without status migrainosus 10/31/2018 G43.119 Migraine with aura, intractable, Nicola RiveraPMariola without status migrainosus 09/19/2018 I27.20 Pulmonary hypertension, Santiago Bishop M.D., FACC, unspecified FASNC 09/19/2018 I27.20 Pulmonary hypertension, [facility] ECHO Schedule unspecified 09/09/2018 E04.9 Nontoxic goiter, unspecified Glenda Thacker M.D. 09/09/2018 R13.10 Dysphagia, unspecified Glenda Thacker M.D. 09/09/2018 I27.20 Pulmonary hypertension, Glenda Thacker M.D. unspecified Plan of Treatment Future Appointment(s):06/11/2019 9:15 am - Spencer To M.D. at [facility]02/20/2019 - Glenda Thacker M.D.Z00.00 Encounter for general adult medical examination without abnormal findingsComments:VACCINES :Flu shot every year in the fall. Done at [facility] earlier this monthTetanus: last one done in 2011. Booster every 10 yearsSCREENING:Pap smear: with Dr. MontgomeryMammogram: starts at age 40, 45, or 50 depending on various guidelines and your family history of breast cancer. Talk to Dr. Montgomery about breast symptomsHIV screening: recommended for all adults - very likely when Cholesterol: just xsphygpL57.20 Pulmonary hypertension, unspecifiedNew Orders:Echocardiogram, Ordered: 02/20/19Comments:Echocardiogram in one was 09/19E04.9 Nontoxic goiter, unspecifiedComments:Your blood level of thyroid hormone is normal.F41.9 Anxiety disorder, unspecifiedComments:Work on finding time for exercise - walking in the neighborhood Look at https:// shareddecisions.[facility].org/https://depressiondecisionaid.[facility].org/pastora/ depressionFollow up:2-3 xpphjU80.33 Obstructive sleep apnea (adult) (pediatric) Comments:Call the pulmonary office for an appointment with Minna Ceron [phone] Functional Status Description No Information Available Mental Status Description No Information Available Referrals Refer to Reason for Referral Status Appt Date Rodríguez Navarro MD Dr. Cryer (saw him in the past) or first Sent 2018 available, son sees Dr. Navarro [address] [place] [address] [phone]
--- NOTE | 2019-04-03 10:27 | ED ---
Headache - HPI Summary HPI Summary: This patient is a 38 year old female presenting to [facility] with a chief complaint of intermittent migraines. She states they have increased in severity over the 3 weeks. She has seen her PCP and he was planning to schedule an MRI, and told the patient to come here once informed they have increased in severity. She has been tried on medications such as hydrocodone to no relief. She reports photophobia and chills when experiencing a migraine. She states the headaches are in the right frontal/temporal region and it sometimes radiates to the same spot on the left side. She states she is currently not experiencing any symptoms. Pt denies any fever, erythema of eyes, sore throat, CP, SOB, cough, abdominal pain, N/V, dysuria, hematuria, myalgia, edema, rash, or dizziness. She states a Hx of sleep apnea and pulmonary hypertension. - History Of Current Complaint Chief Complaint: EDHeadache Stated Complaint: HEADACHE Time Seen by Provider: 04/03/19 10:20 Hx Obtained From: Patient Hx Last Menstrual Period: over one year ago Onset/Duration: Started weeks ago Timing: Intermittent, Lasting:, Hours Location of Headache: Frontal, Temporal - Allergies/Home Medications Allergies/Adverse Reactions: Allergies Allergy/AdvReac Type Severity Reaction Status Date / Time No Known Allergies Allergy Verified 11/03/17 18:28 Home Medications: Home Medications Butalbital/Aspirin/Caffeine [Wizfdnhxgf-LXP-Rhrsgwbi Cap] 1 each PO .8-12H PRN 04/03/19 [History Confirmed 04/03/19] Hydrocodone/Acetaminophen [Hydrocodone-Acetamin 10-325 mg] 1 each PO .Q8-12H PRN MDD 3 tabs 04/03/19 [History Confirmed 04/03/19] Metoprolol Tartrate TAB* [Lopressor TAB*] 25 mg PO BID 04/03/19 [History Confirmed 04/03/19] Rizatriptan Benzoate [Rizatriptan] 10 mg PO ONCE 04/03/19 [History Confirmed ] methylPREDNISolone TAB* [Medrol TAB*] 4 - 8 mg PO .SEE [place] 04/03/19 [History Confirmed 04/03/19] PMH/Surg Hx/FS Hx/Imm Hx Endocrine/Hematology History: Reports: Hx Diabetes - gestational, Hx Thyroid Disease - nodule Cardiovascular History: Reports: Hx Hypertension, Other Cardiovascular Problems/ Disorders - "prolapsed heart valve" Denies: Hx Congestive Heart Failure Respiratory History: Denies: Hx Asthma, Hx Chronic Obstructive Pulmonary Disease (COPD), Other Respiratory Problems/Disorders - DENIES GI History: Denies: Hx Ulcer History: Reports: Other Problems/Disorders - two weeks ago, still has vaginal bleeding Denies: Hx Renal Disease Musculoskeletal History: Reports: Hx Back Problems - fell on ice two years ago, painful if she has too much activity Neurological History: Reports: Hx Migraine - 20 year history, last migrane two months ago - Surgical History Surgery Procedure, Year, and Place: c section two 01/31/16 Hx Anesthesia Reactions: No Infectious Disease History: No Infectious Disease History: Denies: Hx Hepatitis, Hx Human Immunodeficiency Virus (HIV), Traveled Outside the [place] in Last 30 Days - Family History Known Family History: Negative: Cardiac Disease, Hypertension, Diabetes - Social History Alcohol Use: None Substance Use Type: Reports: None Smoking Status (MU): Never Smoked Tobacco Have You Smoked in the Last Year: No Review of Systems Positive: Chills. Negative: Fever Positive: Photophobia. Negative: Erythema Negative: Sore Throat Negative: Chest Pain Negative: Shortness Of Breath, Cough Negative: Abdominal Pain, Vomiting, Nausea Negative: dysuria, hematuria Negative: Myalgia, Edema Neurological: Other - Neg: Dizziness Positive: Headache All Other Systems Reviewed And Are Negative: No Physical Exam - Summary Physical Exam Summary: Constitutional: Well-developed, Well-nourished, Alert. (-) Distressed Skin: Warm, Dry HENT: Normocephalic; Atraumatic Eyes: Conjunctiva normal Neck: Musculoskeletal ROM normal neck. (-) JVD, (-) Stridor, (-) Tracheal deviation Cardio: Rhythm regular, rate normal, Heart sounds normal; Intact distal pulses; The pedal pulses are 2+ and symmetric. Radial pulses are 2+ and symmetric. (-) Murmur Pulmonary/Chest wall: Effort normal. (-) Respiratory distress, (-) Wheezes, (-) Rales Abd: Soft. (-) Tenderness, (-) Distension, (-) Guarding, (-) Rebound Musculoskeletal: (-) Edema Lymph: (-) Cervical adenopathy Neuro: Alert, Oriented x3, Strength normal, Cranial nerves II-XII are grossly intact. (-) Dysmetria, (-) Nystagmus, (-) Ataxia by finger to nose testing, (-) Sensory deficit. Psych: Mood and affect Normal Triage Information Reviewed: Yes Vital Signs On Initial Exam: Initial Vitals Temp Pulse Resp BP Pulse Ox 97.7 F 69 16 157/105 100 04/03/19 09:26 04/03/19 09:26 04/03/19 09:26 04/03/19 09:26 04/03/19 09:26 Vital Signs Reviewed: Yes Procedures - Sedation Patient Received Moderate/Deep Sedation with Procedure: No Diagnostics - Vital Signs Vital Signs Temp Pulse Resp BP Pulse Ox 04/03/19 09:26 97.7 F 69 16 157/105 100 - Laboratory Result Diagrams: 04/03/19 10:31 04/03/19 10:31 Lab Statement: Any lab studies that have been ordered have been reviewed, and results considered in the medical decision making process. - CT Brain CT Interpretation Completed By: Radiologist Summary of CT Findings: No acute intracranial pathology. ED Provider has reviewed this report. - EKG 1100 Cardiac Rate: Bradycardia - 52 BPM EKG Rhythm: Sinus Rhythm Summary of EKG Findings: No STEMI. ED Physician has reviewed and interpreted this EKG. Headache Course/Dx - Course Course Of Treatment: This patient is a 38 year old female presenting to [facility] with a chief complaint of intermittent migraines. Spoke with Steven CHO, the managing Neurology specialist for her. He states he only wanted her to come to the ED if she was having uncontrollable symptoms, and she is currenlty asymptomatic in the ED. Therefore he states he will continue to manage the patient as an outpatient. Brain CT was unremarkable. She will be given an Opthalmology referral to manage migraine symptoms related to her eyes. A plan for discharge was discussed with the patient and she was agreeable with this plan. - Diagnoses Provider Diagnoses: Chronic headache Discharge ED - Sign-Out/Discharge Documenting (check all that apply): Patient Departure - Discharge - Discharge Plan Condition: Stable Disposition: HOME Patient Education Materials: Migraine Headache (ED) Referrals: Steven Omalley [Nurse Practitioner] - 5 Days [facility] [Provider Group] - 3 Days Additional Instructions: Return to ED with new or worsening symptoms. - Attestation Statements Document Initiated by Scribe: Yes Documenting Scribe: Juan C Cleveland Provider For Whom Scribe is Documenting (Include Credential): Nawaf Suazo MD Scribe Attestation: I, Juan C Cleveland, scribed for Nawaf Suazo MD on 04/03/19 at 1206. Status of Scribe Document: Ready
[2019-04-03 10:38] LABS: ABS Basophils 0.1 10^3/ul (0-0.2); ABS Monocytes 0.7 10^3/ul (0-0.8); ABS Neutrophils 9.8 10^3/ul (1.5-7.7); Eosinophil % 0.2 %; Hematocrit 41 % (35-47); Hemoglobin 14.2 g/dL (12.0-16.0); Lymphocyte % 15.7 %; Mean Corpuscular HGB Conc 35 g/dL (31-36); Mean Corpuscular Hemoglobin 31 pg (27-31); Mean Corpuscular Volume 89 fL (80-97); Mean Platelet Volume 7.9 fL (7.4-10.4); Nucleated Red Blood Cells % 0.1; Platelet Count 258 10^3/uL (150-450); Red Blood Count 4.63 10^6 /uL (3.70-4.87); Red Cell Distribution Width 13 % (10-15); White Blood Count 12.6 10^3/uL (3.5-10.8)
[2019-04-03 11:05] LABS: Urine Appearance Clear; Urine Bilirubin Negative (Negative); Urine Blood Negative (Negative); Urine Color Straw; Urine Glucose Negative (Negative); Urine Ketones Negative (Negative); Urine Nitrite Negative (Negative); Urine Protein Negative (Negative); Urine Specific Gravity 1.001 (1.010-1.030); Urine Urobilinogen Negative (Negative)
[2019-04-03 11:14] LABS: Albumin/Globulin Ratio 1.7 (1-3); BUN/Creatinine Ratio 17.6 (8-20); Calcium 10.4 mg/dL (8.6-10.3); EGFR African American 106.3 (>60); EGFR Non-African American 87.8 (>60); Globulin 2.9 g/dL (2-4); Potassium 4.6 mmol/L (3.5-5.0); Total Bilirubin 1.5 mg/dL (0.2-1.0); Total Protein 7.9 g/dL (6.4-8.9)
[2019-04-03 12:18] VITALS: BP 142/81
== END 2019-04-03 12:00 | disposition home or self-care (01) ==
LOC: ED 09:24
DX: G43.909 Migraine, unspecified, not intractable, without status migrainosus (principal); R00.1 Bradycardia, unspecified; I10 Essential (primary) hypertension
CPT/HCPCS: 36415; 70450; 80053; 81003; 83605; 85025; 93005; 99282